=== PATIENT | female | born 1975 | race Caucasian/White ===

== ENCOUNTER → 2016-10-24 | Outpatient (CLI) | payer BC ==
[2016-04-14 11:00] VITALS: BP 141/64
[~2016-10-24] MED LIST: ALPR0.5T PO; BENZ100C2 PO; CYCL10TA2 PO; DOXY100C2 PO; FLUT1DIS3 IH; IBUP-1007 PO; LORA10TA68 PO; NAPR500T3 PO; OMEP1CAP18 PO; OXYC-323 PO; PRED-220 PO; PRED20TA PO; RANI150T2 PO; VARE0.5T PO; VENTOLIN HFA18 GM INH
--- NOTE | 2016-10-24 15:06 | KCIC ---
PROCEDURE MRI cervical spine without contrast. HISTORY Bilateral radicular pain. Neck pain and stiffness. TECHNIQUE Sagittal T1, sagittal T2, sagittal STIR, axial T2, and axial T2 gradient sequences are provided. Sequences were repeated for mild motion. COMPARISON None. FINDINGS There is reversal of cervical lordosis. There is no subluxation. There is no worrisome marrow lesion. There is no cord signal abnormality. 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 Again, there is no cord signal abnormality or syringohydromyelia. Degenerative findings by individual level are estimated below, allowing for motion degradation. C2-C3: There is no canal or foraminal compromise. There is minimal facet hypertrophy. C3-C4: There is no canal or foraminal compromise. There is minimal uncinate process spurring on the left. C4-C5: There is no canal or foraminal compromise. C5-C6: There is a disc osteophyte complex and uncinate process spurring. There is mild cord flattening. Midline AP diameter of the thecal sac is narrowed to 8 millimeters. There is foraminal narrowing bilaterally which appears at least moderate. C6-C7: Disc osteophyte complex and uncinate process spurring are noted. There is a left paracentral protruding spur or protrusion. There is cord flattening on the left. Midline AP diameter of the thecal sac is narrowed to 7 millimeters. There is at least moderate left foraminal narrowing proximally. There is mild to moderate right foraminal narrowing. C7-T1: There is no canal or foraminal compromise. Patient appears to have moved between sagittal and axial imaging, reference lines are not accurate. Motion on the images also limits evaluation of the degree of foraminal narrowing, best estimates provided above. IMPRESSION - Degenerative changes in the cervical spine are greatest at C5-C6 and C6-C7. 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 Electronically signed by: Hector Anglin MD (Oct 24, 2016 15:03:46)
== END | disposition home or self-care (01) ==
LOC: KCIC MRI 12:59
PROVIDERS: ATTEND Family Medicine
DX: M25.78 Osteophyte, vertebrae (principal)
CPT/HCPCS: 72141

== ENCOUNTER → 2017-03-09 | Outpatient (CLI) | payer BC ==
[2016-04-14 11:00] VITALS: BP 141/64
[~2017-03-09] MED LIST changes: +BENZ100C15 PO; -BENZ100C2 PO
--- NOTE | 2017-03-09 12:58 | KCIC ---
Three views right wrist Indication: Right wrist pain after fall There is no fracture or dislocation. Proximal carpal row is intact. No scapholunate widening. There is no periosteal reaction or focal bone lesion. The intercarpal joint spaces are well-maintained. The soft tissues are unremarkable. There is ulnar negative variance. Impression: Negative for fracture or dislocation. Electronically signed by: Rogelio Salinas MD (03/09/2017 12:55 PM) [place] [id number]
--- NOTE | 2017-03-09 13:00 | KCIC ---
3 views right thumb Indication: First digit pain after fall There is no fracture or dislocation. There is no periosteal reaction or focal bone lesion. The joint spaces are well-maintained. The soft tissues are unremarkable. Impression: Unremarkable exam of the right thumb. Electronically signed by: Rogelio Salinas MD (03/09/2017 12:57 PM) [place] [id number]
== END | disposition home or self-care (01) ==
LOC: KCIC 12:08
PROVIDERS: ATTEND Family Medicine
DX: M25.531 Pain in right wrist (principal); M79.641 Pain in right hand; W19.XXXD Unspecified fall, subsequent encounter
CPT/HCPCS: 73110; 73140

== ENCOUNTER 2017-04-20 17:08 | Emergency (ER) | payer BC ==
[~2017-04-20] VITALS: Ht 167.6 cm; Wt 147.4 kg
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
[2017-04-20] MEDS ORDERED: IV NORMAL SALINE 1000ML BAG 1,000 ML IV SCH (18:12)
[2017-04-20] MEDS ORDERED: 0.9 % SODIUM CHLORIDE 10 ML DISP.SYRIN. IV PRN (18:15)
--- NOTE | 2017-04-20 18:28 | EKG ---
[facility] [address] [place] [address] Test Date: 2017-04-20 Test Time: 18:21:37 Pat Name: RAVEN WILSON Department: Room: Gender: F [employer]ist: : 1975 Requested By: CHARIS COOK Order Number: [id number] Reading MD: Santa Noonan Measurements Intervals [place] Rate: 92 P: 48 LA: 142 QRS: -9 QRSD: 88 T: 38 QT: 368 QTc: 460 Interpretive Statements SINUS RHYTHM NORMAL EKG Electronically Signed On 04-24-2017 11:10:33 CDT by Santa Noonan
[2017-04-20] MEDS ORDERED: IOHEXOL 300 MG/ML 75 ML VIAL ONE (18:41)
[2017-04-20] MEDS ORDERED: IOHEXOL 300 MG/ML 75 ML VIAL IV ONE (18:45)
[2017-04-20] MEDS ORDERED: HYDROmorphone 2 MG/ML VIAL IV ONE ×3 (18:45→23:00)
[2017-04-20] MEDS ORDERED: CONTRAST GIVEN MC PRN (18:45)
[2017-04-20 19:27] LABS: BASO % 1 % (0-3); EOS % 3 % (0-3); HEMATOCRIT 37.8 % (36.0-47.0); HEMOGLOBIN 12.6 g/dL (12.0-15.5); LYMPH # 2.7 x10^3/uL (1.0-4.8); LYMPH % 36 % (24-48); MEAN CORPUSCULAR HEMOGLOBIN 30 pg (25-35); MEAN CORPUSCULAR HGB CONC 33 g/dL (31-37); MEAN CORPUSCULAR VOLUME 88 fL (79-100); MONO % 5 % (0-9); NEUT % 55 % (31-73); PLATELET COUNT 218 x10^3/uL (140-400); RED BLOOD COUNT 4.28 x10^6/uL (3.50-5.40); RED CELL DISTRIBUTION WIDTH 13.2 % (11.5-14.5); WHITE BLOOD COUNT 7.5 x10^3/uL (4.0-11.0)
[2017-04-20 19:36] LABS: PROTHROMBIN TIME PATIENT 12.4 SEC (11.7-14.0)
[2017-04-20 19:49] LABS: CALCIUM 9.2 mg/dL (8.5-10.1); CREATININE 0.8 mg/dL (0.6-1.0); GFR 79.9; POTASSIUM 3.9 mmol/L (3.5-5.1)
[2017-04-20 19:54] LABS: ALBUMIN 3.6 g/dL (3.4-5.0); ALBUMIN/GLOBULIN RATIO 1.1 (1.0-1.7); TOTAL BILIRUBIN 0.5 mg/dL (0.2-1.0)
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
[2017-04-20] MEDS: MORPHINE SULFATE 4 MG/ML DISP.SYRIN. IV/SQ PRN ×2 (20:35→21:00)
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
[2017-04-20 22:00] VITALS: BP 109/60
[2017-04-20] MEDS ORDERED: IBUP200T43 PO (22:48)
[2017-04-20] MEDS ORDERED: CYCL10TA2 PO (22:48)
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
== END 2017-04-20 23:15 | disposition home or self-care (01) ==
LOC: ER 17:08
DX: S32.019A Unspecified fracture of first lumbar vertebra, initial encounter for closed fracture (principal); R51 Headache; M54.2 Cervicalgia; M25.562 Pain in left knee; K21.9 Gastro-esophageal reflux disease without esophagitis; G89.29 Other chronic pain; M79.7 Fibromyalgia; M79.652 Pain in left thigh; V44.9XXA Unspecified car occupant injured in collision with heavy transport vehicle or bus in traffic accident, initial encounter; Y93.89 Activity, other specified; Y92.488 Other paved roadways as the place of occurrence of the external cause; Y99.8 Other external cause status; Z79.899 Other long term (current) drug therapy
CPT/HCPCS: 36415; 70450; 71260; 72125; 73552; 73562; 73590; 74160; 80053; 83605; 84484; 85025; 85610; 85730; 86850; 86900; 86901; 93005; 96361; 96374; 96375; 96376; 99285; G0480; J1170; J2270; J7030; Q9967

== ENCOUNTER → 2018-11-16 | Outpatient (CLI) | payer BC ==
[2017-11-19 11:00] VITALS: BP 116/64
[~2018-11-16] MED LIST changes: +BENZ-8 PO; -BENZ100C15 PO; +BUDE10.22 IH; +DESV100T PO; +DOCU-109 PO; +GADOBUTROL 7.5 MMOL/7.5 ML VIAL IV ONE; +IBUP200T44 PO; +LIDO700A39 TD; +MONT10TA9 PO; +MORP30TA3 PO; +NAPR-514 PO; -NAPR500T3 PO; -OXYC-323 PO; +OXYC1TAB15 PO; +TIZA4TAB PO
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
== END | disposition home or self-care (01) ==
LOC: KCIC MRI 11:20
PROVIDERS: ATTEND Nurse Practitioner Family
DX: F07.81 Postconcussional syndrome (principal); E22.1 Hyperprolactinemia; J34.89 Other specified disorders of nose and nasal sinuses; R89.1 Abnormal level of hormones in specimens from other organs, systems and tissues
CPT/HCPCS: 70553; A9585

== ENCOUNTER → 2020-01-28 | Outpatient (CLI) | payer BC ==
[2017-11-19 11:00] VITALS: BP 116/64
[~2020-01-28] MED LIST changes: -GADOBUTROL 7.5 MMOL/7.5 ML VIAL IV ONE; +GADOTERATE 7.5 MMOL/15ML VIAL. IVP ONE; +LIDO700A21 TD; -LIDO700A39 TD; +MONT10TA49 PO; -MONT10TA9 PO; +MORP-16 PO; -MORP30TA3 PO; -TIZA4TAB PO; +TIZA4TAB2 PO
--- NOTE | 2020-01-28 16:11 | KCIC ---
BRAIN WO/W CONTRAST Date: 01/28/2020 2:45 PM Indication: HEADACHES, CEREBELLAR TONSILLAR ECTOPIA/CHIARI 1 MALFORMATION , Dizziness, headaches, light sensitivity. Comparison: 11/16/2018. Technique: Multiplanar multisequence MRI of the brain was performed with and without intravenous contrast using the standard protocol. 22 cc Dotarem contrast was administered intravenously during the exam. Findings: Motion artifact degrades image quality. No acute infarct. No acute or chronic hemorrhage. The ventricles are normal in size and configuration without hydrocephalus. Pointed morphology of the cerebellar tonsils with inferior tonsillar descent, extending 11 mm below the foramen magnum No abnormal enhancement. The scalp and calvarium are normal. Partial empty sella. The visualized upper cervical spine is normal. The visualized orbits and globes are normal. Mild paranasal sinus mucosal thickening. The mastoid air cells are clear. Normal flow voids within the vertebral, basilar, and internal carotid arteries indicating patency. IMPRESSION: 1. No acute infarct or hemorrhage. No mass or abnormal enhancement. 2. Chiari malformation. Electronically signed by: Bacilio Martinez MD (01/28/2020 4:08 PM) [id number]
== END | disposition home or self-care (01) ==
LOC: KCIC MRI 07:39
PROVIDERS: ATTEND Family Medicine
DX: G93.5 Compression of brain (principal)
CPT/HCPCS: 70553; A9575